=== PATIENT | female | born 1950 | race Caucasian/White ===

== ENCOUNTER → 2016-11-14 | Outpatient (CLI) | payer OTHER ==
[~2016-11-14] MED LIST: AMOX875T PO; ASCO500C3 PO; ASPEC81 PO; ASPI81TA21 PO; ATOR-22 PO; ATV/1 PO; ATV1 PO; CHOL1000 PO; CITRACAL; CLR10 PO; CYAN500T13 PO; DVN80 PO; FENO145T26 PO; GEMF600T3 PO; GLC500 PO; GLIM4TAB PO; HYDC25 PO; LSN20 PO; METF1000 PO; MULT-190 PO; NYST1POW7 TOP; OMEG10007 PO; POTA10CA28 PO; PRAV20TA PO; REPA2TAB13 PO; SPCCR30 TOP; VITAMIN B OR; VITAMIN D
[2016-11-14 13:42] LABS: ESTIMATED AVERAGE GLUCOSE 166 mg/dl; HA1C FLAG Normal (Normal)
== END | disposition home or self-care (01) ==
LOC: C.LAB 12:07
PROVIDERS: ATTEND Internal Medicine
DX: E11.9 Type 2 diabetes mellitus without complications (principal)

== ENCOUNTER → 2017-03-08 | Outpatient (CLI) | payer OTHER ==
[~2017-03-08] MED LIST changes: +REPA2TAB12 PO; -REPA2TAB13 PO
[2017-03-08 09:16] LABS: ALT/SGPT 22 U/L (12-78); BLOOD UREA NITROGEN 14 mg/dl (7-18); BUN/CREATININE RATIO 15.3 (10-20); CARBON DIOXIDE 27 mmol/L (21-32); CHLORIDE 105 mmol/L (98-107); CHOLESTEROL 188 mg/dl (0-200); GLUCOSE 163 mg/dl (70-99); SODIUM 140 mmol/L (136-145); TRIGLYCERIDES 332 mg/dl (0-150); VERY LOW DENSITY LIPOPROT CALC 66 mg/dl
[2017-03-08 09:17] LABS: CALCIUM 8.5 mg/dl (8.5-10.1)
[2017-03-08 09:19] LABS: ALKALINE PHOSPHATASE 43 U/L (45-117); AST/SGOT 14 U/L (15-37); CHOLESTEROL/HDL RATIO 5.5; HDL CHOLESTEROL 34 mg/dl; LDL CHOLESTEROL CALCULATED 88 mg/dl
[2017-03-08 09:22] LABS: ESTIMATED AVERAGE GLUCOSE 171 mg/dl; HA1C FLAG Normal (Normal)
== END | disposition home or self-care (01) ==
LOC: C.LAB 08:04
PROVIDERS: ATTEND Internal Medicine
DX: E11.9 Type 2 diabetes mellitus without complications (principal); Z23 Encounter for immunization; E78.5 Hyperlipidemia, unspecified

== ENCOUNTER 2017-04-12 18:16 | Emergency (ER) | payer OTHER ==
[~2017-04-12] VITALS: Ht 154.9 cm; Wt 100.7 kg
[~2017-04-12 18:16] MED LIST changes: -AMOX875T PO; -ASCO500C3 PO; -ASPI81TA21 PO; -ATOR-22 PO; -ATV/1 PO; -CHOL1000 PO; -CLR10 PO; -CYAN500T13 PO; -FENO145T26 PO; -LSN20 PO; -METF1000 PO; -MULT-190 PO; -NYST1POW7 TOP; -REPA2TAB12 PO; -SPCCR30 TOP
[2017-04-12 18:18] VITALS: TEMP 36.8; Ht 154.9 cm; Wt 100.7 kg
[2017-04-12] MEDS ORDERED: PIPERACILLIN/TAZOBACTAM 4.5 GM/100ML D5W IV STA (18:33)
[2017-04-12] MEDS ORDERED: SODIUM CHLORIDE 0.9% 1000ML 1,000 ML IV STA (18:33)
[2017-04-12 19:20] LABS: BASO % 0.4 %; BASO ABS # 0.03 K/uL (0-0.2); COMPLETE YES; HEMATOCRIT 38.8 % (37-47); IG% 0.6 %; LYMPH % 19.3 %; LYMPH ABS # 1.57 K/uL (1.2-3.4); MEAN CELL VOLUME 86.2 fL (80-100); MEAN CORPUSCULAR HEMOGLOBIN 28.2 pg (25-34); MEAN CORPUSCULAR HGB CONC 32.7 g/dl (32-36); MEAN PLATELET VOLUME 10.5 fL (7.4-10.4); MONO % 16.6 %; NEUT % 62.1 %; PLATELET COUNT 258 K/uL (130-400); WHITE BLOOD COUNT 8.15 K/uL (4.8-10.8)
[2017-04-12] MEDS ORDERED: METF1000 PO (19:28)
[2017-04-12] MEDS ORDERED: ATV/1 PO (19:28)
[2017-04-12] MEDS ORDERED: ASPI81TA21 PO (19:28)
[2017-04-12] MEDS ORDERED: SPCCR30 TOP (19:35)
[2017-04-12] MEDS ORDERED: AMOX875T PO (19:35)
[2017-04-12] MEDS ORDERED: MULT-190 PO (19:35)
[2017-04-12] MEDS ORDERED: ATOR-22 PO (19:35)
[2017-04-12] MEDS ORDERED: CHOL1000 PO (19:35)
[2017-04-12] MEDS ORDERED: FENO145T26 PO (19:35)
[2017-04-12] MEDS ORDERED: NYST1POW7 TOP (19:35)
[2017-04-12] MEDS ORDERED: CLR10 PO (19:35)
[2017-04-12] MEDS ORDERED: ASCO500C3 PO (19:35)
[2017-04-12] MEDS ORDERED: CYAN500T13 PO (19:35)
[2017-04-12] MEDS ORDERED: LSN20 PO (19:35)
[2017-04-12] MEDS ORDERED: REPA2TAB13 PO (19:35)
[2017-04-12 19:43] LABS: BUN/CREATININE RATIO 13.1 (10-20); CALCIUM 8.8 mg/dl (8.5-10.1); CREATININE 1.1 mg/dl (0.60-1.20); POTASSIUM 3.4 mmol/L (3.5-5.1)
[2017-04-12 19:49] LABS: CKMB/CK RATIO 1.1 (0-3.0)
--- NOTE | 2017-04-12 20:28 | DIAGNOSTIC IMAGING REPORT ---
RIGHT UPPER EXTREMITY VENOUS DOPPLER ULTRASOUND CLINICAL HISTORY: Right arm swelling. COMPARISON STUDY: No previous studies for comparison. FINDINGS: No deep venous thrombus was identified within the right upper extremity. No superficial thrombus was identified. Sonography of the right elbow at site of redness revealed subcutaneous edema without fluid collection. IMPRESSION: 1. No deep venous thrombus within the right upper extremity. 2. Subcutaneous edema of the right elbow with no fluid collection identified. Electronically signed by: Rajiv To M.D. 04/12/2017 8:26 PM Dictated Date/Time: 04/12/2017 8:25 PM
[2017-04-12 21:27] VITALS: BP 156/100; PULSE 77; O2SAT 94
--- NOTE | 2017-04-12 21:44 | EMERGENCY ROOM VISIT NOTE ---
History Report prepared by Gregg: Genie Cordoba Under the Supervision of: Dr. Kishor Jimenez D.O. First contact with patient: 18:24 Chief Complaint: INFECTION Stated Complaint: INFECTION IN RT ARM,CAN'T RAISE IT MUCH History of Present Illness The patient is a 66 year old female who presents to the Emergency Room with complaints of persistent right arm redness starting 2 days ago. Two days ago, she was fatigued and slept all day. She had fever and chills. Yesterday, she went to see her PCP who said that she had cellulitis in her right arm. She was given a shot and started on Augmentin. She started the Augmentin today. Her arm seemed improved this morning, but she noticed today that her right breast had redness and warmth. She did not have fever or chills today. She has had diarrhea after starting the Augmentin. She also has had decreased appetite. The patient has a history of breast cancer and had surgery. The lymph nodes in her right arm were removed. She has had in infection in her arm before after her surgery which required a hospital stay. Source of History: patient Onset: 2 days ago Position: arm (right) Quality: other (redness) Timing: other (persistent) Associated Symptoms: + fevers, + chills, + diarrhea, + fatigue Note: Pt reports redness and warmth in breast, decreased appetite. Review of Systems See HPI for pertinent positives & negatives. A total of 10 systems reviewed and were otherwise negative. Past Medical & Surgical Medical Problems: (1) Diabetes (2) HTN (hypertension) Surgical Problems: (1) H/O mastectomy (2) Hx of cholecystectomy Family History Diabetes mellitus FH: cancer FH: heart disease Hypertension Social History Smoking Status: Never Smoker Alcohol Use: none Drug Use: none Marital Status: single Housing Status: lives alone Occupation Status: employed Current/Historical Medications Scheduled Amoxicillin & Pot Clavulanate (Augmentin 875-125 mg), 1 TAB PO BID Ascorbic Acid (Vitamin C), 500 MG PO QAM Aspirin Enteric Coated (Ecotrin Or Generic), 81 MG PO QAM Atorvastatin (Lipitor), 20 MG PO HS Cholecalciferol (Vitamin D3), 1,000 UNITS PO QAM Cyanocobalamin (Vitamin B12 500MCG), 500 MCG PO QAM Econazole Nitrate (Econazole Nitrate Crm 1% 30 Gm), 1 APPLN TOP DAILY Fenofibrate (Tricor ), 145 MG PO QAM Fish Oil ([place]-3), 1 CAP PO DAILY Glimepiride (Amaryl), 4 MG PO BIDM Lisinopril (Lisinopril), 20 MG PO BID Metformin Hcl (Glucophage), 1,000 MG PO BIDM Nystatin (Topical) (Nystatin), 1 APPLN TOP BID Ocuvite Preservision (Ocuvite Preservision), 1 TAB PO QAM Repaglinide (Prandin), 2 MG PO AC Scheduled PRN Loratadine (Claritin), 10 MG PO DAILY PRN for CONGESTION Lorazepam (Ativan), 1 MG PO BID PRN for Anxiety/Agitation Allergies Coded Allergies: Sulfa Drugs (Verified Allergy, Severe, TONGUE SWELLS, 04/12/17) Physical Exam Vital Signs Date Time Temp Pulse Resp B/P (MAP) Pulse Ox O2 Delivery O2 Flow Rate FiO2 04/12/17 21:27 77 156/100 94 04/12/17 20:29 94 168/105 97 Room Air 04/12/17 19:22 98 04/12/17 18:18 36.8 105 20 177/79 94 Room Air Physical Exam CONSTITUTIONAL/VITAL SIGNS: Reviewed / noted above. GENERAL: Non-toxic in appearance. INTEGUMENTARY: Warm, dry, and [place]. HEAD: Normocephalic. EYES: without scleral icterus or trauma. ENT/OROPHARYNX: clear and moist. LYMPHADENOPATHY/NECK: Is supple without lymphadenopathy or meningismus. RESPIRATORY: Lungs clear and equal. CARDIOVASCULAR: Regular rate and rhythm. GI/ABDOMEN: Soft and nontender. No organomegaly or pulsatile mass. No rebound or guarding. Normal bowel sounds. EXTREMITIES: Right upper extremity between shoulder and right elbow is erythematous, edematous, and warm on the lateral aspect. 80% of the right breast is erythematous and warm. No discharge. BACK: No CVA tenderness. NEUROLOGICAL: Intact without focal deficits. PSYCHIATRIC: normal affect. MUSCULOSKELETAL: Normally developed with good muscle tone. Medical Decision & Procedures ER Provider Diagnostic Interpretation: Radiology results as stated below per my review and radiologist interpretation: RIGHT UPPER EXTREMITY VENOUS DOPPLER ULTRASOUND CLINICAL HISTORY: Right arm swelling. COMPARISON STUDY: No previous studies for comparison. FINDINGS: No deep venous thrombus was identified within the right upper extremity. No superficial thrombus was identified. Sonography of the right elbow at site of redness revealed subcutaneous edema without fluid collection. IMPRESSION: 1. No deep venous thrombus within the right upper extremity. 2. Subcutaneous edema of the right elbow with no fluid collection identified. Electronically signed by: Rajiv To M.D. 04/12/2017 8:26 PM Dictated Date/Time: 04/12/2017 8:25 PM Laboratory Results 04/12/17 19:00 Red Blood Count 4.50, Mean Corpuscular Volume 86.2, Mean Corpuscular Hemoglobin 28.2, Mean Corpuscular Hemoglobin Concent 32.7, Mean Platelet Volume 10.5, Neutrophils (%) (Auto) 62.1, Lymphocytes (%) (Auto) 19.3, Monocytes (%) (Auto) 16.6, Eosinophils (%) (Auto) 1.0, Basophils (%) (Auto) 0.4, Neutrophils # (Auto ) 5.07, Lymphocytes # (Auto) 1.57, Monocytes # (Auto) 1.35, Eosinophils # (Auto ) 0.08, Basophils # (Auto) 0.03 04/12/17 19:00 Test 04/12/17 19:00 White Blood Count 8.15 K/uL (4.8-10.8) Red Blood Count 4.50 M/uL (4.2-5.4) Hemoglobin 12.7 g/dL (12.0-16.0) Hematocrit 38.8 % (37-47) Mean Corpuscular Volume 86.2 fL (80-100) Mean Corpuscular Hemoglobin 28.2 pg (25-34) Mean Corpuscular Hemoglobin Concent 32.7 g/dl (32-36) Platelet Count 258 K/uL (130-400) Mean Platelet Volume 10.5 fL (7.4-10.4) Neutrophils (%) (Auto) 62.1 % Lymphocytes (%) (Auto) 19.3 % Monocytes (%) (Auto) 16.6 % Eosinophils (%) (Auto) 1.0 % Basophils (%) (Auto) 0.4 % Neutrophils # (Auto) 5.07 K/uL (1.4-6.5) Lymphocytes # (Auto) 1.57 K/uL (1.2-3.4) Monocytes # (Auto) 1.35 K/uL (0.11-0.59) Eosinophils # (Auto) 0.08 K/uL (0-0.5) Basophils # (Auto) 0.03 K/uL (0-0.2) RDW Standard Deviation 44.7 fL (36.4-46.3) RDW Coefficient of Variation 14.1 % (11.5-14.5) Immature Granulocyte % (Auto) 0.6 % Immature Granulocyte # (Auto) 0.05 K/uL (0.00-0.02) Erythrocyte Sedimentation Rate 46 mm/hr (0-21) Anion Gap 8.0 mmol/L (3-11) Est Creatinine Clear Calc Drug Dose 53.3 ml/min Estimated GFR () 59.7 Estimated GFR (Non- 51.5 BUN/Creatinine Ratio 13.1 (10-20) Calcium Level 8.8 mg/dl (8.5-10.1) Total Creatine Kinase 194 U/L (26-192) Creatine Kinase MB 2.1 ng/ml (0.5-3.6) Creatine Kinase MB Ratio 1.1 (0-3.0) Chemistry Specimen Hemolysis Laboratory results as stated above per my review. Medications Administered Medications (Trade) Dose Ordered Sig/Po Route Start Time Stop Time Status Last Admin Dose Admin Sodium Chloride 1,000 ml @ 999 mls/hr Q1H1M STAT IV 04/12/17 18:33 04/12/17 19:33 DC 04/12/17 19:06 999 MLS/HR Piperacillin Sod/ Tazobactam Sod (Zosyn Iv) 4.5 gm NOW STAT IV 04/12/17 18:33 04/12/17 18:36 DC 04/12/17 19:06 4.5 GM ED Course 1826: Previous medical records were reviewed. The patient was evaluated in room A2. A complete history and physical examination was performed. 1832: Zosyn Iv 4.5 gm IV, NSS 1000 ml @ 999 mls/hr IV. 2113: On reevaluation, the patient is resting comfortably. I discussed the results and findings with the patient. She verbalized agreement of the treatment plan. She was discharged home. Medical Decision Differential diagnosis: Etiologies such as cellulitis, abscess, MRSA infection, DVT, necrotizing fasciitis, dermatitis, drug eruption, as well as others were entertained. This is a 66-year-old female who presents to the ED with a chief complaint of an infection of the right arm and right breast. The patient states that she has history of diabetes. She noticed her right arm redness 2 days ago and was started on Augmentin yesterday. The patient reported some subjective chills. She states that she slept most of the day. Her sister noticed the redness in her right breast and told her to come to the ED to get it checked. The patient is otherwise feeling okay. Exam reveals some erythema of the right breast. It encompasses about 70-80% of this tissue. There is also some redness to the lateral aspect of the right upper extremity between the elbow and the right shoulder. Her CBC is normal. Sedimentation rate is 46. Complete metabolic panel was unremarkable. Glucose is 235. Ultrasound did not show DVT of the right upper extremity. The patient was given IV Zosyn and IV fluids. The patient will continue Augmentin orally. The areas of cellulitis were delineated on the patient's skin with a marker. She will watch this to see if this worsens. She will return if she sees worsening of the redness and if so return for admission with IV antibiotics. Medication Reconcilliation Current Medication List: was personally reviewed by me Blood Pressure Screening Patient's blood pressure: Elevated blood pressure Blood pressure disposition: Referred to PCP Impression Primary Impression: Cellulitis of breast Additional Impression: Cellulitis of arm, right Scribe Attestation The scribe's documentation has been prepared under my direction and personally reviewed by me in its entirety. I confirm that the note above accurately reflects all work, treatment, procedures, and medical decision making performed by me. Departure Information Dispostion Home / Self-Care Referrals Gail Watts M.D. (PCP) Patient Instructions My [facility] Additional Instructions Continue Augmentin as prescribed. Watch the redness. If it extends beyond the lines drawn, return for IV antibiotics and admission. Return to the emergency department should he develop fevers or vomiting. Follow-up with your doctor in 2-3 days for recheck. Problem Qualifiers
== END 2017-04-12 21:52 | disposition home or self-care (01) ==
LOC: C.EDB 18:17 → C.EDA 21:52
DX: N61.0 Mastitis without abscess (principal); L03.113 Cellulitis of right upper limb; R50.9 Fever, unspecified; R19.7 Diarrhea, unspecified; R53.83 Other fatigue; R63.0 Anorexia; I10 Essential (primary) hypertension; E11.9 Type 2 diabetes mellitus without complications; Z79.82 Long term (current) use of aspirin; Z79.84 Long term (current) use of oral hypoglycemic drugs; Z79.899 Other long term (current) drug therapy; Z85.3 Personal history of malignant neoplasm of breast; Z98.890 Other specified postprocedural states; Z82.49 Family history of ischemic heart disease and other diseases of the circulatory system; Z83.3 Family history of diabetes mellitus

== ENCOUNTER → 2017-06-23 | Outpatient (CLI) | payer OTHER ==
[~2017-06-23] MED LIST changes: +AMOX875T PO; +ASCO500C3 PO; -ASPEC81 PO; +ASPI81TA21 PO; +ATOR-22 PO; +ATV/1 PO; -ATV1 PO; +CHOL1000 PO; -CITRACAL; +CLR10 PO; +CYAN500T13 PO; -DVN80 PO; +FENO145T26 PO; -GEMF600T3 PO; -GLC500 PO; -HYDC25 PO; +LSN20 PO; +METF1000 PO; +MULT-190 PO; +NYST1POW7 TOP; -POTA10CA28 PO; -PRAV20TA PO; +REPA2TAB13 PO; +SPCCR30 TOP; -VITAMIN B OR; -VITAMIN D
[2017-06-23 10:01] LABS: BLOOD UREA NITROGEN 13 mg/dl (7-18); BUN/CREATININE RATIO 15.8 (10-20); CALCIUM 9.3 mg/dl (8.5-10.1); CARBON DIOXIDE 26 mmol/L (21-32); CHLORIDE 103 mmol/L (98-107); CREATININE 0.85 mg/dl (0.60-1.20); GLUCOSE 159 mg/dl (70-99); POTASSIUM 3.9 mmol/L (3.5-5.1); SODIUM 139 mmol/L (136-145)
== END | disposition home or self-care (01) ==
LOC: C.LAB 06:25
PROVIDERS: ATTEND Internal Medicine
DX: I10 Essential (primary) hypertension (principal); E87.6 Hypokalemia; R19.7 Diarrhea, unspecified; E11.9 Type 2 diabetes mellitus without complications

== ENCOUNTER → 2017-07-08 | Outpatient (CLI) | payer OTHER ==
--- NOTE | 2017-07-08 15:20 | MAMMOGRAPHY REPORT ---
BILATERAL DIGITAL SCREENING MAMMOGRAM TOMOSYNTHESIS WITH CAD: 07/08/2017 CLINICAL HISTORY: Asymptomatic. Personal history of breast cancer. TECHNIQUE: Breast tomosynthesis in addition to standard 2D mammography was performed. Current study was also evaluated with a Computer Aided Detection (CAD) system. COMPARISON: Comparison is made to exams dated: 07/03/2016 mammogram, 06/30/2015 mammogram, 01/18/2015 ultrasound, 01/18/2015 mammogram, 06/29/2014 mammogram - [facility], and 06/11/2007. BREAST COMPOSITION: There are scattered areas of fibroglandular density in both breasts. FINDINGS: There are stable postsurgical changes in the right breast, with numerous surgical clips in the medial breast, and benign rim calcifications. No new suspicious mass, architectural distortion o r cluster of microcalcifications is seen. IMPRESSION: ACR BI-RADS CATEGORY 1: NEGATIVE There is no mammographic evidence of malignancy. A 1 year screening mammogram is recommended. The pa tient will receive written notification of the results. Approximately 10% of breast cancers are not detected with mammography. A negative mammographic report should not delay biopsy if a clinically suggestive mass is present. Vandana Figueroa M.D. ay/:07/08/2017 08:15:33 Bulk Pallet Builder: Jasmina Figueroa, [facility] letter sent: Normal 1/2 BI-RADS Code: ACR BI-RADS Category 1: Negative
== END | disposition home or self-care (01) ==
LOC: C.MAMM 07:42
PROVIDERS: ATTEND Internal Medicine
DX: Z12.31 Encounter for screening mammogram for malignant neoplasm of breast (principal); Z85.3 Personal history of malignant neoplasm of breast